=== PATIENT | male | born 1975 ===

== ENCOUNTER 2020-01-01 00:35 | Emergency (ER) | payer SELFPAY ==
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
== END 2020-01-01 01:03 | disposition expired ==
LOC: LB.ED 00:35
DX: I46.9 Cardiac arrest, cause unspecified (principal); I10 Essential (primary) hypertension
CPT/HCPCS: 92950; 99285-25